=== PATIENT | male | born 1990 | race Caucasian/White ===

== ENCOUNTER 2019-01-04 15:39 | Emergency (ER) | payer BC ==
--- NOTE | 2019-01-04 17:03 | ULT ---
RIGHT LOWER EXTREMITY VENOUS DUPLEX EXAM: 01/04/19 Deep veins of the right lower extremity were evaluated with color doppler, spectral analysis and comp ression. HISTORY: Right lower extremity pain and edema. FINDINGS: Deep veins of the right lower extremity show normal blood flow and compression. No evidence of DVT. IMPRESSION: Negative right lower extremity venous duplex exam. POS: [facility]
== END 2019-01-04 17:38 | disposition home or self-care (01) ==
LOC: ERS 15:39
DX: M79.661 Pain in right lower leg (principal); F41.9 Anxiety disorder, unspecified